=== PATIENT | male | born 1985 | race Caucasian/White ===

== ENCOUNTER 2023-01-09 11:06 | Emergency (ER) | payer OTHER ==
[~2023-01-09] VITALS: Ht 167.6 cm; Wt 72.6 kg
[~2023-01-09 11:06] MED LIST: IBUP-44
[2023-01-09 12:02] VITALS: BP 115/81; PULSE 102; RESP 18; TEMP 98; O2SAT 98
[2023-01-09] MEDS ORDERED: AMOX-1230 PO (13:52)
[2023-01-09 14:09] VITALS: BP 115/81; PULSE 102; RESP 18; TEMP 98; O2SAT 98
== END 2023-01-09 12:59 | disposition home or self-care (01) ==
LOC: MED 11:06
DX: H66.91 Otitis media, unspecified, right ear (principal); Z79.899 Other long term (current) drug therapy
CPT/HCPCS: 99283